=== PATIENT | male | born 1950 ===

== ENCOUNTER 2024-11-06 09:31 | Day surgery (SDC) | payer MEDICARE ==
[~2024-11-06 09:31] MED LIST: Sodium Chloride 0.9% 10 ML Syringe FLUSH PRN; Sodium Chloride 0.9% 10 ML Syringe FLUSH SCH
[2024-11-06] MEDS: Lactated Ringers 1,000 ML IV SCH (10:15)
[2024-11-06] MEDS ORDERED: dexmedeTOMIDine HCl 200 MCG/2 ML SDV ONE (10:21)
[2024-11-06] MEDS ORDERED: Ropivacaine 0.5% 5 MG/ML 30 ML SDV ONE (10:22)
[2024-11-06] MEDS ORDERED: ceFAZolin 2 GM Vial ONE (10:22)
[2024-11-06] MEDS ORDERED: Propofol 200 MG/20 ML SDV ONE ×3 (10:26→11:23)
[2024-11-06] MEDS ORDERED: fentaNYL 250 MCG/5 ML SDV ONE (10:28)
[2024-11-06] MEDS ORDERED: EPINEPHrine 1 MG/ML SDV ONE (10:46)
[2024-11-06] MEDS: ePHEDrine 50 MG/ML SDV ONE (11:17)
[2024-11-06] MEDS: Bupivacaine 0.5% 30 ML SDV ONE (11:17)
[2024-11-06] MEDS ORDERED: Ondansetron 4 MG/2 ML SDV IVPUSH PRN (12:15)
[2024-11-06] MEDS ORDERED: fentaNYL 100 MCG/2 ML SDV IVPUSH PRN (12:15)
[2024-11-06] MEDS ORDERED: HYDROmorphone 0.5 MG/0.5 ML Syringe IVPUSH PRN (12:15)
== END 2024-11-06 14:05 | disposition home or self-care (01) ==
LOC: JD.SDS 09:31
PROVIDERS: ATTEND Surgery
DX: K40.90 Unilateral inguinal hernia, without obstruction or gangrene, not specified as recurrent (principal)
CPT/HCPCS: 00830; 99100; C1781; J0171; J0665; J0690; J2704; J2795; J3010; J3490; J7120